=== PATIENT | female | born 1965 | race Hispanic/Latino ===

== ENCOUNTER 2016-12-30 11:24 | Emergency (ER) | payer MEDICAID ==
[2016-12-30 11:35] VITALS: BMI 24.4
[2016-12-30 11:57] VITALS: BP 156/89; PULSE 72; RESP 17; TEMP 98.5; O2SAT 100
== END 2016-12-30 11:25 | disposition left against medical advice (07) ==
LOC: ED 11:24
DX: Z02.89 Encounter for other administrative examinations (principal); F41.9 Anxiety disorder, unspecified